=== PATIENT | male | born 1985 | race African-American/Black ===

== ENCOUNTER 2016-12-29 23:58 | Emergency (ER) | payer SELFPAY ==
[~2016-12-29] VITALS: Ht 167.6 cm; Wt 105.5 kg
[2016-12-30 00:02] VITALS: TEMP 97.9
[2016-12-30 00:49] LABS: BASO # 0.1 (0.0-0.2); BASO % 0.5 % (0.0-2.0); EOS # 0.2 (0.0-0.7); EOS % 1.7 % (0-4.0); GRAN # 7.2 (1.4-6.5); HEMOGLOBIN 16.4 g/dl (13.5-18.0); LYMPH % 26.4 % (20.0-51.0); MEAN CELL VOLUME 85 fl (80.0-100.0); MEAN CORPUSCULAR HEMOGLOBIN 28 pg (27.0-31.0); MEAN CORPUSCULAR HGB CONC 34 g/dl (33.0-37.0); MEAN PLATELET VOLUME 9.2 fl (7.4-10.4); MONO # 0.8 (0.1-0.6); PLATELET COUNT 262 K/mm3 (130-400); RED BLOOD COUNT 5.78 M/mm3 (4.20-5.60); REDCELL DISTRIBUTION WIDTH-CV 13.4 % (11.5-14.5); WHITE BLOOD COUNT 11.2 K/mm3 (4.8-10.8)
[2016-12-30 01:02] LABS: ADJUSTED CALCIUM 9.7 mg/dL (8.4-10.2); ALANINE AMINOTRANSFERASE 33 U/L (21-72); ALBUMIN 4.4 gm/dL (3.5-5.0); ALKALINE PHOSPHATASE 72 U/L (50-136); ANION GAP 13 mmol/L (7-16); BILIRUBIN,TOTAL 0.5 mg/dL (0.0-1.0); BLOOD UREA NITROGEN 11 mg/dL (9-20); CARBON DIOXIDE 26 mmol/L (22-30); CHLORIDE 101 mmol/L (98-107); GLUCOSE 97 mg/dL (74-106); LIPASE 176 U/L (23-300); POTASSIUM 3.8 mmol/L (3.4-5.0); SODIUM 140 mmol/L (137-145); TOTAL PROTEIN 7.8 gm/dL (6.4-8.2)
[2016-12-30 01:15] LABS: B-TYPE NATRIURETIC PEPTIDE < 11 pg/mL (0-125); TROPONIN-I < 0.012 ng/mL (0.000-0.034)
[2016-12-30 02:32] VITALS: BP 143/100; PULSE 68
== END 2016-12-30 02:32 | disposition home or self-care (01) ==
LOC: COL.ER 23:58
PROVIDERS: Emergency Medicine
DX: R55 Syncope and collapse (principal); R00.2 Palpitations; N18.2 Chronic kidney disease, stage 2 (mild); F17.210 Nicotine dependence, cigarettes, uncomplicated
CPT/HCPCS: J7030